=== PATIENT | female | born 1990 | race Two or more races ===

== ENCOUNTER 2021-01-12 11:26 | Emergency (ER) | payer OTHER ==
[~2021-01-12] VITALS: Ht 157.5 cm; Wt 45.8 kg
[2021-01-12] MEDS ORDERED: CYCLOBENZAPRINE10 MG PO (16:11)
[2021-01-12] MEDS ORDERED: DUI500 PO (16:11)
== END 2021-01-12 16:19 ==
LOC: ER 11:26
DX: O26.891 Other specified pregnancy related conditions, first trimester (principal); M54.89 Other dorsalgia; Z3A.08 8 weeks gestation of pregnancy

== ENCOUNTER 2021-04-10 12:26 | Outpatient (CLI) | payer OTHER ==
[~2021-04-10 12:26] MED LIST: CYCLOBENZAPRINE10 MG PO; DUI500 PO
== END 2021-04-10 14:02 | disposition home or self-care (01) ==
LOC: PRENATAL 12:26
PROVIDERS: ATTEND Obstetrics & Gynecology Maternal & Fetal Medicine
DX: O35.0XX1 Maternal care for (suspected) central nervous system malformation in fetus, fetus 1 (principal); O35.3XX1 Maternal care for (suspected) damage to fetus from viral disease in mother, fetus 1; O98.512 Other viral diseases complicating pregnancy, second trimester; O28.1 Abnormal biochemical finding on antenatal screening of mother; Z36.89 Encounter for other specified antenatal screening; Z3A.20 20 weeks gestation of pregnancy